=== PATIENT | male | born 1955 | race Caucasian/White ===

== ENCOUNTER → 2019-12-01 | Outpatient (CLI) | payer OTHER ==
[~2019-12-01] MED LIST: ASA81BEC PO; DILTIAZEM ER180 M2 PO; LIPITOR 20 MG T20 M1 PO; TOPROL XL100 MG PO; TORSEMIDE10 MG PO; VALSARTAN-HCTZ1 EAC2 PO; XARELTO20 MG PO
== END ==
LOC: SJCVCIMAG 08:48
PROVIDERS: ATTEND Internal Medicine Cardiovascular Disease
DX: I07.1 Rheumatic tricuspid insufficiency (principal); I27.20 Pulmonary hypertension, unspecified; I11.9 Hypertensive heart disease without heart failure; I48.91 Unspecified atrial fibrillation; E78.00 Pure hypercholesterolemia, unspecified; Z87.891 Personal history of nicotine dependence

== ENCOUNTER → 2019-12-08 | Outpatient (CLI) | payer OTHER ==
[~2019-12-08] VITALS: Ht 180.3 cm; Wt 118.8 kg
[2019-12-08 07:15] VITALS: BP 107/84
[2019-12-08 07:23] LABS: HEMATOCRIT 50.9 % (42.0-52.0); HEMOGLOBIN 17.1 gm/dL (14.0-18.0); MCH 30.4 pg (26.0-34.0); MCHC 33.7 g/dL (28.0-37.0); MCV 90.2 fL (80.0-100.0); RBC 5.64 mil/uL (4.50-6.00); RDW 13.9 % (10.5-14.5); WBC 6.2 thou/uL (4.0-11.0)
[2019-12-08 07:25] LABS: CALCIUM 9.7 mg/dL (8.5-10.1); CREATININE 2.3 mg/dL (0.7-1.3); POTASSIUM 4.2 mmol/L (3.5-5.1)
--- NOTE | 2019-12-08 07:48 | EKG ---
[facility] [address] [place] [address] ELECTROCARDIOGRAM REPORT Name: PIEDADCELIA Room #: REG [facility]..#: [id number] Admission: 12/08/19 Attend Phys: Zhang Whalen MD, Discharge: Date of : 55 Report #: [id number] THIS REPORT FOR: cc: Mandeep Dan Louis D. DO Lundgren, Craig H. 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 : 1955 Requested By: Zhang Whalen Order Number: [id number] MD: Gilbert Pop Measurements Intervals [place] Rate: 78 P: [place]: QRS: -30 QRSD: 97 T: 212 QT: 372 QTc: 424 Interpretive Statements Atrial fibrillation Inferior infarct, old Abnrm T, consider ischemia, anterolateral lds No previous ECG available for comparison Electronically Signed On 12-08-2019 7:47:25 CDT by Gilbert Pop [email or web address] <ELECTRONICALLY SIGNED> By: Gilbert Pop MD, FACC 12/08/19 0747 7 Gilbert Pop MD, [facility] /EPI
--- NOTE | 2019-12-08 17:05 | NUR ---
ambulated in hallway with out incident. r groin remains stable.
--- NOTE | 2019-12-10 17:24 | CATHLAB ---
[facility] [place] [place] [address] INVASIVE PROCEDURE REPORT Name: CELIA HERBERT Room #: REG JOSELO Anastacio#: [id number] Admission: 12/08/19 Attend Phys: Zhang Whalen MD, Discharge: Date of : 55 Report #: [id number] THIS REPORT FOR: cc: Mandeep Dan Louis D. DO Mancuso, Gerald M. 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 A PINNACLE 6FR Sheath #[id number] sheath was inserted into the RFA. Coronary angiography was performed using coronary diagnostic catheters. The right coronary system was accessed and visualized with a JR4 catheter. The left coronary system was accessed and visualized with a JL4 catheter. Closure device was deployed with a 6 Fr MYNXGRIP 6/7F #[id number]. Hemostasis was obtained with manual pressure following sheath removal without any complications. The patient tolerated the procedure well and there were no complications associated with the procedure. There was no hematoma. Intraoperative Conscious Sedation Sedation start time: 14:04 Case end Time: 14:42 [facility] [place] [address] INVASIVE PROCEDURE REPORT Name: CELIA HERBERT Room #: [facility] KORINA Chaves#: [id number] Admission: 12/08/19 Attend Phys: Zhang Whalen, Discharge: Date of : 55 Report #: [id number] Fentanyl 100 mcg Versed 2 mg Fluoro Time: 10.36 minutes Dose: DAP 93143.20 cGycm2 900 mGy Contrast Type and Amount: Visipaque 35 ml Hemodynamics The right atrial mean pressure is 10 mmHg. The right ventricular pressure is 31/8 mmHg. The pulmonary artery pressure is 28/18 mmHg with a mean of 21 mmHg. The mean pulmonary capillary wedge pressure is 13 mmHg. The aortic pressure is 105/74 mmHg with a mean of 88 mmHg. The left ventricular pressure is 96/11 mmHg with a mean of mmHg. The left ventricular end diastolic pressure is 17 mmHg. The cardiac output using thermo method is 3.60 L/min. The cardiac index using thermo method is 1.47 L/min/m2. Conclusion 1. Successful right heart catheterization with cardiac output by thermodilution. See above hemodynamics. #2 left main large free of disease giving rise to LAD and circumflex #3 LAD with mild irregularity eccentric 30 to 40% proximal lesion wraps around the apex. #4 circumflex OM moderate in size although technically nondominant mild irregularities. #5 a small dominant right coronary artery with a small PDA ANGEL no significant occlusive disease #6 bilateral renal artery selectively injected mild renal atherosclerotic disease. Recommendations and plan: Continue aggressive risk factor modification. No indication for coronary intervention. No significant pulmonary hypertension is noted. <ELECTRONICALLY SIGNED> By: Zhang Whalen MD, FACC 12/10/191722 22 22 Zhang Whalen MD, FACC /INF
== END | disposition home or self-care (01) ==
LOC: CATH 06:38
PROVIDERS: ATTEND Internal Medicine Cardiovascular Disease
DX: R94.39 Abnormal result of other cardiovascular function study (principal); I25.10 Atherosclerotic heart disease of native coronary artery without angina pectoris; I70.1 Atherosclerosis of renal artery; I10 Essential (primary) hypertension; R06.00 Dyspnea, unspecified; I48.91 Unspecified atrial fibrillation; I42.9 Cardiomyopathy, unspecified; E78.5 Hyperlipidemia, unspecified; E78.00 Pure hypercholesterolemia, unspecified; F17.210 Nicotine dependence, cigarettes, uncomplicated; Z98.890 Other specified postprocedural states; Z79.899 Other long term (current) drug therapy; Z79.82 Long term (current) use of aspirin; Z93.3 Colostomy status

== ENCOUNTER → 2019-12-27 | Outpatient (CLI) | payer OTHER | LOC: SJCVCIMAG 09:30 | PROVIDERS: ATTEND Internal Medicine Cardiovascular Disease | DX: I42.9 Cardiomyopathy, unspecified (principal); I48.91 Unspecified atrial fibrillation ==

== ENCOUNTER → 2019-12-29 | Outpatient (CLI) | payer OTHER | LOC: LAB 08:01 | PROVIDERS: ATTEND Internal Medicine Cardiovascular Disease | DX: Z01.818 Encounter for other preprocedural examination (principal); Z11.59 Encounter for screening for other viral diseases ==

== ENCOUNTER → 2020-01-03 | Outpatient (CLI) | payer OTHER ==
[~2020-01-03] VITALS: Ht 180.3 cm; Wt 118.0 kg
[2020-01-03 07:21] VITALS: BP 95/68
--- NOTE | 2020-01-03 09:08 | TEE ---
[facility] [place] [place] [address] TRANSESOPHAGEAL ECHOCARDIOGRAM Name: CELIA HERBERT Room #: REG JOSELO Koehler.#: [id number] Admission: 01/03/20 Attend Phys: Gilbert Pop MD, Discharge: Date of : 55 Report #: [id number] THIS REPORT FOR: cc: Mandeep Dan Louis D. DO Lundgren, Craig H. MD [facility] ~ APPROVED REPORT Study performed: 01/03/2020 07:43:14 EXAM: Transesophageal Echocardiogram with Doppler and Cardioversion Patient Location: Out-Patient Status: routine BSA: 2.43 HR: 68 bpm BP: 96/69 mmHg Rhythm: Atrial Fibrillation Other Information Study Quality: Good Indications Atrial Fibrillation Cardioversion. Cardiomyopathy. Procedure After obtaining informed consent, patient underwent transesophageal echo in the [employer]. Type of Sedation : Conscious Sedation Sedation was achieved intravenously with: Versed (6) Fentanyl (200) Transesophageal probe was inserted and advanced into esophagus without difficulty by Gilbert Pop MD. Echo enhancement indication: R/O Septal defect. Echo enhancement agent administered: Agitated Saline The YUMIKO was performed without complications. Synchronized Cardioversion acheived with 150 Joules after 1 attempt(s). Rhythm following Synchronized Cardioversion: Sinus Bradycardia Throughout the procedure, the blood pressure, pulse oximetry, cardiac rhythm, and rate were monitored. The patient tolerated the procedure without adverse effects. Recovery from conscious sedation was uneventful and vital signs were [facility] [address] [place] [address] TRANSESOPHAGEAL ECHOCARDIOGRAM Name: CELIA HERBERT GEM Room #: REG [facility].#: [id number] Admission: 01/03/20 Attend Phys: Gilbert Pop, Discharge: Date of : 55 Report #: [id number]. Left Ventricle The left ventricle is normal size. There is normal left ventricular wall thickness. Left ventricular systolic function is moderate to severely decreased. LVEF is 30-35%. Right Ventricle The right ventricle is normal size. The right ventricular systolic function is normal. Atria Left atrium is dilated. No thrombus is visualized in the left atrium or appendage. No shunting noted by contrast bubble injection. Right atrium is dilated. Aortic Valve The aortic valve is normal in structure. No aortic regurgitation is present. There is no aortic valvular stenosis. Mitral Valve The mitral valve is normal in structure. Mild mitral regurgitation. No evidence of mitral valve stenosis. Tricuspid Valve The tricuspid valve is normal in structure. Mild tricuspid regurgitation. Pulmonic Valve The pulmonary valve is normal in structure. Trace pulmonic regurgitation. Great Vessels The aortic root is normal in size. The ascending aorta is normal in size. IVC is normal in size and collapses >50% with inspiration. Pericardium There is no pericardial effusion. <Conclusion> Left ventricular systolic function is moderate to severely decreased. LVEF is 30-35%. Both atria are dilated. No thrombus is visualized in the left atrium or appendage. [facility] [address] [place] [address] TRANSESOPHAGEAL ECHOCARDIOGRAM Name: CELIA HERBERT GEM Room #: REG [facility].#: [id number] Admission: 01/03/20 Attend Phys: Gilbert Pop, Discharge: Date of : 55 Report #: [id number] No shunting noted by contrast bubble injection. The aortic valve is normal in structure. No aortic regurgitation or stenosis The mitral valve is normal in structure. Mild mitral regurgitation. There is no pericardial effusion. Successful cardioversion of atrial fibrillation to sinus rhythm following a single 150 J synchronous shock. <ELECTRONICALLY SIGNED> By: Gilbert Pop MD, [facility] 01/03/20907 7 7 Gilbert Pop MD, FACC /INF
== END ==
LOC: CATH 06:29
PROVIDERS: ATTEND Internal Medicine
DX: I48.91 Unspecified atrial fibrillation (principal); I42.9 Cardiomyopathy, unspecified; E78.00 Pure hypercholesterolemia, unspecified; I10 Essential (primary) hypertension; E78.5 Hyperlipidemia, unspecified; E66.09 Other obesity due to excess calories; Z98.890 Other specified postprocedural states; Z79.899 Other long term (current) drug therapy; Z90.49 Acquired absence of other specified parts of digestive tract; Z79.01 Long term (current) use of anticoagulants; Z98.0 Intestinal bypass and anastomosis status; Z79.82 Long term (current) use of aspirin

== ENCOUNTER → 2020-02-01 | Outpatient (CLI) | payer OTHER ==
[~2020-02-01] MED LIST changes: +MULTAQ400 MG PO
== END ==
LOC: LAB 10:15
PROVIDERS: ATTEND Internal Medicine Cardiovascular Disease
DX: Z01.818 Encounter for other preprocedural examination (principal); Z20.828 Contact with and (suspected) exposure to other viral communicable diseases

== ENCOUNTER → 2020-02-01 | Outpatient (CLI) | payer OTHER ==
[2020-02-01 09:49] LABS: HEMOGLOBIN 13.8 gm/dL (14.0-18.0); MCH 29.7 pg (26.0-34.0); MCHC 32.9 g/dL (28.0-37.0); MCV 90.2 fL (80.0-100.0); RBC 4.66 mil/uL (4.50-6.00); RDW 14.3 % (10.5-14.5); WBC 6.2 thou/uL (4.0-11.0)
[2020-02-01 10:26] LABS: ALBUMIN 3.8 g/dL (3.4-5.0); CALCIUM 9.1 mg/dL (8.5-10.1); CREATININE 1.9 mg/dL (0.7-1.3); POTASSIUM 5.4 mmol/L (3.5-5.1); TOTAL BILIRUBIN 0.8 mg/dL (0.2-1.0); TOTAL PROTEIN 6.7 g/dL (6.4-8.2)
== END ==
LOC: CAT 09:15
PROVIDERS: ATTEND Internal Medicine Cardiovascular Disease
DX: J84.10 Pulmonary fibrosis, unspecified (principal); I25.10 Atherosclerotic heart disease of native coronary artery without angina pectoris; I48.91 Unspecified atrial fibrillation

== ENCOUNTER 2020-02-04 06:31 | Observation (INO) | payer OTHER ==
[~2020-02-04] VITALS: Ht 180.3 cm; Wt 125.2 kg
[~2020-02-04 06:31] MED LIST changes: -MULTAQ400 MG PO
[2020-02-04 07:08] VITALS: BP 104/70
[2020-02-04 07:33] LABS: ABSOLUTE NEUTROPHILS 3.2 thou/uL (1.4-8.2); BASOPHILS 0.9 % (0.0-2.0); EOSINOPHILS 7.6 % (0.0-3.0); HEMATOCRIT 39.1 % (42.0-52.0); LYMPHOCYTES 20.6 % (24.0-44.0); MCH 30.2 pg (26.0-34.0); MCHC 33.3 g/dL (28.0-37.0); MCV 90.5 fL (80.0-100.0); MONOCYTES 10.8 % (1.0-8.0); PLATELET COUNT 176 thou/uL (150-400); POLYS 60.1 % (36.0-66.0); RBC 4.32 mil/uL (4.50-6.00); RDW 14.3 % (10.5-14.5); WBC 5.4 thou/uL (4.0-11.0)
[2020-02-04] MEDS ORDERED: MULTAQ400 MG PO (07:37)
[2020-02-04 07:44] LABS: CALCIUM 8.7 mg/dL (8.5-10.1); CREATININE 1.8 mg/dL (0.7-1.3); POTASSIUM 4.4 mmol/L (3.5-5.1)
[2020-02-04 07:45] LABS: INR 1.1; PROTIME 11.5 Seconds (9.3-11.4)
[2020-02-04 07:50] LABS: ALBUMIN 3.4 g/dL (3.4-5.0); TOTAL BILIRUBIN 0.7 mg/dL (0.2-1.0); TOTAL PROTEIN 6.7 g/dL (6.4-8.2)
[2020-02-04 13:20] VITALS: BP 105/68
--- NOTE | 2020-02-04 14:00 | P ---
[facility] [place] [address] PROCEDURE REPORT Name: CELIA HERBERT Room #: 208-P [facility] M.Brooke#: [id number] Admission: 02/04/20 Attend Phys: Ubaldo Duron MD Discharge: Date of : 55 Report #: [id number] THIS REPORT FOR: cc: Mandeep Dan,Ubaldo Peter MD ~ CC: Mandeep Duron DATE OF SERVICE: 02/04/2020 PREOPERATIVE DIAGNOSIS: Atrial fibrillation. POSTOPERATIVE DIAGNOSIS: Atrial fibrillation. INDICATION: The patient is a 64-year-old with history of recurrent AFib despite antiarrhythmic drug therapy. He is here for ablation. PROCEDURES PERFORMED: 1. Atrial fibrillation ablation, CPT code 31531. 2. 3D mapping, CPT code 70375. 3. Intracardiac echo, CPT code 98941. 4. Focal ablation, CPT code 53587. ANESTHESIA: The patient underwent general anesthesia with no anesthesia related complications. DESCRIPTION OF PROCEDURE: The patient underwent informed consent. We discussed the details of the procedure including the risks, which include but not limited to bleeding, infection, vascular damage, stroke, and TN. He understood these risks and is willing to proceed. The patient was brought to EP laboratory in fasting and sedated state, prepped and draped in a sterile fashion. I injected lidocaine at the right groin and obtained access to the right femoral vein x 3, placing 8, 9 and 7-Mohawk short sheath using the modified Seldinger technique. Next, under fluoroscopy, decapolar catheter was easily placed into the coronary sinus and an ICE catheter was placed into the right atrium. Using intracardiac ultrasound, a 3D geometry of the left atrium was created with evidence of two left and two right pulmonary veins. The left superior pulmonary vein had a very anterior takeoff, which made isolation somewhat challenging. This was merged with the patient's cardiac CT scan. Next, a transseptal was performed using a Waldorf needle and SL1 sheath after the patient was systemically heparinized. Transseptal was straightforward and I exchanged the SL1 sheath for the cryo sheath and placed the Lasso catheter in the left atrium and created a detailed 3D geometry and voltage map of the left atrium. At baseline, the patient was in atrial fibrillation. I started by [facility] [address] [place] [address] PROCEDURE REPORT Name: CELIA HERBERT GEM Room #: 208-P [facility] Zac Chaves#: [id number] Admission: 02/04/20 Attend Phys: Ubaldo Duron MD Discharge: Date of : 55 Report #: [id number] isolating the left superior pulmonary vein. This vein underwent a 4-minute, followed by 3-minute, followed by 4-minute freeze, which did not result in isolation. I then turned my attention to the left inferior pulmonary vein and performed two 4-minute freeze and the vein was still not isolated despite good attempts. Therefore, I performed a third freeze and took care of the inferior aspect of the vein and then the vein isolated within 20 seconds. This third freeze was of 3 minutes duration. I went back to the left superior pulmonary vein. It was still connected and therefore, I performed an anterior freeze with good amount of counterclockwise torque and deflected the balloon down. This resulted in isolation of the vein at 20 seconds, and this fourth freeze was of 4 minutes duration. I then turned my attention to the right-sided veins, phrenic nerve pacing was performed using the decapolar catheter placed in the subclavian vessel. The right superior vein underwent a 3-minute freeze and isolated within 25 seconds. The right inferior pulmonary vein underwent a 3-minute freeze and isolated within 45 seconds. Next, I went and performed a posterior roofline. I performed 4 freezes anchored from the left superior pulmonary vein and 2 freezes anchored from the right superior pulmonary vein. At this point, a repeat voltage map was performed and there was isolation of the pulmonary veins as well as the posterior roof region of the left atrium. The patient underwent 200 joule cardioversions with sabianist of sinus rhythm and then an EP study was performed. AV block was noted to be 350 milliseconds. Atrial ERP was noted at 340 milliseconds, at 450 millisecond, basic drive cycle length. Next, aggressive atrial burst pacing was performed to see if we had any atrial flutters induced and when I burst pace down to 240 milliseconds, the patient did go back into AFib, but this is not organized into atrial flutter. Therefore, another 200 joule cardioversion was performed and sinus rhythm was restored. Using intracardiac ultrasound, I verified there was no pericardial effusion. The patient received systemic protamine and once ACT was in the acceptable range, catheters and sheaths were pulled and hemostasis obtained. Jzggan-mz-xokfe suture was deployed to the right groin region. CONCLUSIONS: Successful AFib ablation with isolation of the pulmonary veins and successful posterior roofline creation. <ELECTRONICALLY SIGNED> By: Ubaldo Duron MD 02/04/20 1400 1142 1252 Ubaldo Duron MD /nt
[2020-02-04 14:22] VITALS: BP 105/68
[2020-02-04 14:30] VITALS: BP 91/60
--- NOTE | 2020-02-04 15:08 | NUR ---
TO UNIT FROM PACU BY BED. ALREADY AT BEDSIDE. VSS. NO COMPLAINTS. DENIES CHEST PAIN. RYTHM STILL AFIB, RATE CONTROLLED. ORIENTED TO UNIT AND BEDREST. RIGHT GROIN SOFT, NONTENDER, CLEAN AND DRY. WILL CONTINUE TO FOLLOW CLOSELY.
[2020-02-04 15:40] VITALS: BP 89/62
[2020-02-04 19:45] VITALS: BP 100/63
[2020-02-05] VITALS: BP 99/63
--- NOTE | 2020-02-05 03:55 | NUR ---
ASSESSED AT START OF SHIFT 1900. PT RESTING IN BED. DENIES PAIN. RT GROIN DRESSING C/D/I. FOLLEY CATH IN PLACE AND DRAINING. EVENING MEDS GIVEN AND PT EDE WELL. VSS. WILL CONT TO MONITOR
[2020-02-05 04:00] VITALS: BP 104/69
[2020-02-05 08:49] VITALS: BP 101/69
--- NOTE | 2020-02-05 09:50 | NUR ---
ASSUMED CARE APPROX 0700. PT ALERT AND ORIENTED X4. ASSESSMENT CHARTED AND VSS. RT GROIN POST-CATH SITE C/D/I. PT DENIES ACUTE PAIN. PT DENIES CHEST PAIN. PT SR ON TELE MONITOR. PT TO BE DISCHARGED. DISCHARGE INSTRUCTIONS/PACKET DISCUSSED W/ PT AND SPOUSE AT BEDSIDE. PT AND SPOUSE DENY QUESTIONS REGARDING DISCHARGE INSTRUCTIONS. TELE MONITOR REMOVED AND IV D/C'D. PT ESCORTED OUT TIMELY.
[2020-02-05 10:00] VITALS: BP 101/69
--- NOTE | 2020-02-05 11:39 | EKG ---
[facility] [place] [place] [address] ELECTROCARDIOGRAM REPORT Name: GURPREET HERBERTYURI RABAGO Room #: 208-P [facility] M.R.#: [id number] Admission: 02/04/20 Attend Phys: Ubaldo Duron MD Discharge: 02/05/20 Date of : 55 Report #: [id number] THIS REPORT FOR: cc: Mandeep Dan Louis D. DO Couchonnal, Luis F. 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
== END 2020-02-05 11:14 | disposition home or self-care (01) ==
LOC: CATH 06:31 → 2N 13:26
PROVIDERS: ADMIT Internal Medicine Cardiovascular Disease; ATTEND Internal Medicine Cardiovascular Disease
DX: I48.91 Unspecified atrial fibrillation (principal); I10 Essential (primary) hypertension; E78.5 Hyperlipidemia, unspecified; E66.01 Morbid (severe) obesity due to excess calories; Z87.891 Personal history of nicotine dependence; Z79.899 Other long term (current) drug therapy; Z68.39 Body mass index [BMI] 39.0-39.9, adult; Z85.038 Personal history of other malignant neoplasm of large intestine
CPT/HCPCS: 62110; 62900; 65020; 65040; 70005

== ENCOUNTER → 2020-03-07 | Outpatient (CLI) | payer OTHER ==
[~2020-03-07] MED LIST changes: +MULTAQ400 MG PO
--- NOTE | ~2020-03-07 | P ---
[facility] [place] [address] [place] [address] PROCEDURE REPORT Name: CELIA HERBERT Room #: REG JOSELO Koehler.#: [id number] Admission: 03/07/20 Attend Phys: Ubaldo Duron MD Discharge: Date of : 55 Report #: [id number] THIS REPORT FOR: cc: Mandeep Dan,Ubaldo Peter MD ~ CC: Mandeep Duron DATE OF SERVICE: 03/07/2020 PROCEDURE PERFORMED: Implantable loop recorder insertion. PREOPERATIVE DIAGNOSIS: Atrial fibrillation. POSTOPERATIVE DIAGNOSIS: Atrial fibrillation. DESCRIPTION OF PROCEDURE: The patient underwent informed consent. He was prepped and draped in a standard fashion. I injected lidocaine at the incision site. Incision was made, device was injected. A single suture was performed and surgical glue was placed over skin layer. There were no procedure related complications. Implanted device was a [employer] LINQ, serial #[id number]. CONCLUSIONS: Successful implantation of an implantable loop recorder. By: 1300 1326 Ubaldo Duron MD /nt
[2020-03-07 12:00] VITALS: BP 100/51
[2020-03-07 12:39] VITALS: BP 100/51
== END | disposition home or self-care (01) ==
LOC: CATH 08:17
PROVIDERS: ATTEND Internal Medicine Cardiovascular Disease
DX: I48.91 Unspecified atrial fibrillation (principal); I10 Essential (primary) hypertension; E78.5 Hyperlipidemia, unspecified; Z79.899 Other long term (current) drug therapy; Z98.890 Other specified postprocedural states; Z79.01 Long term (current) use of anticoagulants

== ENCOUNTER → 2020-08-09 | Outpatient (CLI) | payer OTHER | LOC: SJCVCIMAG 15:16 | PROVIDERS: ATTEND Internal Medicine Cardiovascular Disease | DX: I08.8 Other rheumatic multiple valve diseases (principal); I11.9 Hypertensive heart disease without heart failure; I48.91 Unspecified atrial fibrillation; Z87.891 Personal history of nicotine dependence ==